=== PATIENT | female | born 1960 | race Caucasian/White ===

== ENCOUNTER 2024-08-29 13:00 | Outpatient (CLI) | payer OTHER | END 2024-08-29 13:01 | disposition home or self-care (01) | LOC: CSHCT 13:00 | PROVIDERS: ATTEND Physician Assistant | DX: H90.A12 Conductive hearing loss, unilateral, left ear with restricted hearing on the contralateral side (principal); Z96.22 Myringotomy tube(s) status | CPT/HCPCS: 70480 ==